=== PATIENT | female | born 1995 | race Two or more races ===

== ENCOUNTER 2018-01-06 22:47 | Emergency (ER) | payer MEDICAID ==
[~2018-01-06] VITALS: Ht 160 cm; Wt 82.0 kg
[2018-01-07] MEDS ORDERED: KETOROLAC 30MG/ML VIAL IV STA (04:52)
[2018-01-07] MEDS ORDERED: ONDANSETRON HCL 4MG/2ML VIAL IV STA (04:52)
[2018-01-07 05:27] LABS: CHLORIDE 109 mEq/L (98-107)
[2018-01-07 05:28] LABS: BASOPHILS % 0.6 % (0.0-2.0); EOSINOPHILS % 1.9 % (0.0-5.0); HEMATOCRIT. 36.9 % (36.0-48.0); HEMOGLOBIN. 12.8 g/dL (12.0-16.0); LYMPHOCYTES % 32.8 % (20.0-50.0); MEAN CORPUSCULAR HEMOGLOBIN 30.4 pg (28.0-32.0); MEAN CORPUSCULAR VOLUME 87.8 fL (81.0-99.0); MEAN PLATELET VOLUME 8.1 fl (7.4-10.4); MONOCYTES % 8.2 % (2.0-8.0); NEUTROPHILS % 56.5 % (40.0-76.0); PLATELET 283 x1000/uL (130-400); PROTHROMBIN TIME 10.4 sec (9.4-11.6); RED BLOOD CELL COUNT 4.21 mill/uL (4.2-5.4); RED CELL DISTRIBUTION WIDTH 13.1 % (11.6-14.6)
[2018-01-07 05:35] LABS: HCG SCREEN POSITIVE
[2018-01-07 10:54] LABS: CLARITY URINE CLEAR (CLEAR); COLOR URINE YELLOW (YELLOW); KETONES URINE NEGATIVE (NEGATIVE); LEUKOCYTE ESTERASE URINE NEGATIVE (NEGATIVE); NITRITE URINE NEGATIVE (NEGATIVE); OCCULT BLOOD URINE NEGATIVE (NEGATIVE); PROTEIN URINE NEGATIVE (NEGATIVE); SPECIFIC GRAVITY URINE 1.015 (1.005-1.030)
[2018-01-07 12:35] VITALS: BP 112/67
== END 2018-01-07 12:30 | disposition home or self-care (01) ==
LOC: ER 22:47
DX: O20.0 Threatened abortion (principal); O99.321 Drug use complicating pregnancy, first trimester; F12.90 Cannabis use, unspecified, uncomplicated; O99.331 Smoking (tobacco) complicating pregnancy, first trimester; D72.829 Elevated white blood cell count, unspecified; Z3A.01 Less than 8 weeks gestation of pregnancy
CPT/HCPCS: 36415; 76801; 76817; 80053; 81003; 83690; 84702; 84703; 85025; 85610; 96374; 96375; 99285; J1885; J2405; Z7610

== ENCOUNTER 2018-01-21 23:08 | Emergency (ER) | payer MEDICAID ==
[~2018-01-21] VITALS: Ht 160 cm; Wt 82.0 kg
[2018-01-22] MEDS ORDERED: SODIUM CHLORIDE 0.9% 1,000 ML IV ONE (00:28)
[2018-01-22] MEDS ORDERED: ACETAMINOPHEN 500MG TABLET PO ONE (00:30)
[2018-01-22 00:46] LABS: CLARITY URINE CLEAR (CLEAR); COLOR URINE YELLOW (YELLOW); KETONES URINE NEGATIVE (NEGATIVE); LEUKOCYTE ESTERASE URINE 2+ (NEGATIVE); NITRITE URINE NEGATIVE (NEGATIVE); OCCULT BLOOD URINE NEGATIVE (NEGATIVE); PROTEIN URINE NEGATIVE (NEGATIVE); SPECIFIC GRAVITY URINE 1.015 (1.005-1.030); UROBILINOGEN URINE 0.2 E.U./dL (0.2-1.0)
[2018-01-22 00:58] LABS: BASOPHILS % 0.6 % (0.0-2.0); EOSINOPHILS % 1.8 % (0.0-5.0); HEMOGLOBIN. 12.4 g/dL (12.0-16.0); LYMPHOCYTES % 34.1 % (20.0-50.0); MEAN CORPUSCULAR HEMOGLOBIN 30.3 pg (28.0-32.0); MEAN CORPUSCULAR VOLUME 87.7 fL (81.0-99.0); MEAN PLATELET VOLUME 8.2 fl (7.4-10.4); MONOCYTES % 8.9 % (2.0-8.0); NEUTROPHILS % 54.6 % (40.0-76.0); PLATELET 283 x1000/uL (130-400)
[2018-01-22 01:03] LABS: CHLORIDE 107 mEq/L (98-107)
[2018-01-22] MEDS ORDERED: CEFTRIAXONE 1 G PREMIX 50 ML IV ONE (04:15)
[2018-01-22 05:17] VITALS: BP 103/58
== END 2018-01-22 05:20 | disposition home or self-care (01) ==
LOC: ER 23:08
DX: O23.31 Infections of other parts of urinary tract in pregnancy, first trimester (principal); Z3A.01 Less than 8 weeks gestation of pregnancy
CPT/HCPCS: 36415; 76801; 76817; 80053; 81003; 81025; 83690; 84702; 85025; 87077; 87086; 96365; 99285; J0696; J7030

== ENCOUNTER 2018-01-29 20:16 | Emergency (ER) | payer MEDICAID ==
[~2018-01-29] VITALS: Ht 162.6 cm; Wt 75.0 kg
[2018-01-29] MEDS ORDERED: SODIUM CHLORIDE 0.9% 1,000 ML IV ONE (21:19)
[2018-01-29] MEDS ORDERED: ACETAMINOPHEN 325MG TABLET PO STA (21:19)
[2018-01-29 21:37] LABS: CLARITY URINE CLOUDY (CLEAR); COLOR URINE DARK YELLOW (YELLOW); KETONES URINE TRACE (NEGATIVE); LEUKOCYTE ESTERASE URINE TRACE (NEGATIVE); NITRITE URINE NEGATIVE (NEGATIVE); OCCULT BLOOD URINE NEGATIVE (NEGATIVE); PROTEIN URINE NEGATIVE (NEGATIVE); SPECIFIC GRAVITY URINE 1.031 (1.005-1.030)
[2018-01-29 22:04] LABS: BASOPHILS % 0.5 % (0.0-2.0); EOSINOPHILS % 1.4 % (0.0-5.0); HEMOGLOBIN. 12.3 g/dL (12.0-16.0); LYMPHOCYTES % 28.6 % (20.0-50.0); MEAN CORPUSCULAR HEMOGLOBIN 30.1 pg (28.0-32.0); MEAN CORPUSCULAR VOLUME 87.9 fL (81.0-99.0); MEAN PLATELET VOLUME 8.2 fl (7.4-10.4); MONOCYTES % 9.1 % (2.0-8.0); NEUTROPHILS % 60.4 % (40.0-76.0); PLATELET 275 x1000/uL (130-400); RED BLOOD CELL COUNT 4.09 mill/uL (4.2-5.4); RED CELL DISTRIBUTION WIDTH 12.9 % (11.6-14.6)
[2018-01-29 22:10] LABS: CHLORIDE 107 mEq/L (98-107)
[2018-01-29 22:13] LABS: PROTHROMBIN TIME 10.6 sec (9.4-11.6)
[2018-01-29 22:35] LABS: B-HCG QUANTITATIVE 68008 mIU/mL (<3)
[2018-01-30] MEDS ORDERED: CEFTRIAXONE SODIUM 250 MG/VIAL IM SCH (00:32)
[2018-01-30] MEDS ORDERED: AZITHROMYCIN 500 MG TABLET PO SCH (00:33)
[2018-01-30 01:30] VITALS: BP 106/51
[2018-02-02 04:14] LABS: CHLAMYDIA TRACHOMATIS NAA Negative (Negative); NEISSERIA GONORRHOEAE NAA Negative (Negative)
== END 2018-01-30 01:31 | disposition home or self-care (01) ==
LOC: ER 20:16
DX: O20.0 Threatened abortion (principal); O26.891 Other specified pregnancy related conditions, first trimester; O23.591 Infection of other part of genital tract in pregnancy, first trimester; O34.81 Maternal care for other abnormalities of pelvic organs, first trimester; O99.331 Smoking (tobacco) complicating pregnancy, first trimester; N83.299 Other ovarian cyst, unspecified side; O99.89 Other specified diseases and conditions complicating pregnancy, childbirth and the puerperium; Z3A.08 8 weeks gestation of pregnancy
CPT/HCPCS: 36415; 76801; 76817; 76857; 80053; 81003; 81025; 83605; 83690; 84702; 85025; 85610; 86850; 86900; 86901; 87210; 87491; 87591; 96372; 99285; J0696; J7030